=== PATIENT | female | born 1935 | race Caucasian/White ===

== ENCOUNTER 2021-01-05 13:19 | Emergency (ER) | payer MEDICARE ==
[~2021-01-05] VITALS: Ht 154.9 cm; Wt 46.3 kg
[2021-01-05] MEDS ORDERED: IV NORMAL SALINE 1000ML BAG 1,000 ML IV ONE (13:45)
--- NOTE | 2021-01-05 13:52 | RAD ---
EXAM: Head CT without contrast. HISTORY: Altered mental status. TECHNIQUE: Computed tomographic images of the head were obtained without contrast. *One or more of the following individualized dose reduction techniques were utilized for this examina tion: 1. Automated exposure control. 2. Adjustment of the mA and/or kV according to patient size. 3. Use of iterative reconstruction technique. COMPARISON: None. FINDINGS: There is no acute or subacute extra-axial or intraparenchymal hemorrhage. There is no mass effect or midline shift. There is no hydrocephalus. There are areas of decreased attenuation within the cerebral white matter, nonspecific and likely rel ated to chronic small vessel disease. There is cerebral atrophy. No orbital lesion is seen. The visualized paranasal sinuses are clear. There is minimal left mastoid fluid. No calvarial lesion is seen. IMPRESSION: 1. No acute intracranial finding. Note is made that MRI is more sensitive for acute infarction. 2. Bilateral cerebral white matter changes, likely due to chronic small vessel disease in a patient o f this age. 3. Cerebral atrophy. Findings were discussed with Beverley in the ED at 1345 hours on 01/05/2021. FOR INTERNAL CODING PURPOSES RESULT CODE: (C) Electronically signed by: Sarah Patterson MD (01/05/2021 1:49 PM) [id number]
--- NOTE | 2021-01-05 13:54 | RAD ---
EXAM: Chest, single view. HISTORY: Altered mental status. COMPARISON: None. FINDINGS: A frontal view of the chest is obtained. There is no infiltrate, pleural effusion or pneumo thorax. The heart is normal in size. IMPRESSION: No acute pulmonary finding. Electronically signed by: Sarah Patterson MD (01/05/2021 1:51 PM) [id number]
[2021-01-05 14:40] LABS: BASO % 1 % (0-3); EOS % 1 % (0-3); HEMATOCRIT 39.7 % (36.0-47.0); HEMOGLOBIN 13.4 g/dL (12.0-15.5); LYMPH % 11 % (24-48); MEAN CORPUSCULAR HEMOGLOBIN 31 pg (25-35); MEAN CORPUSCULAR HGB CONC 34 g/dL (31-37); MEAN CORPUSCULAR VOLUME 91 fL (79-100); MONO # 0.4 x10^3/uL (0.0-1.1); MONO % 5 % (0-9); NEUT # 7.6 x10^3/uL (1.8-7.7); NEUT % 83 % (31-73); PLATELET COUNT 243 x10^3/uL (140-400); RED BLOOD COUNT 4.36 x10^6/uL (3.50-5.40); RED CELL DISTRIBUTION WIDTH 13.6 % (11.5-14.5); WHITE BLOOD COUNT 9.2 x10^3/uL (4.0-11.0)
[2021-01-05 14:57] LABS: CALCIUM 8.8 mg/dL (8.5-10.1); CREATININE 1.2 mg/dL (0.6-1.0); GFR 42.9; POTASSIUM 4.2 mmol/L (3.5-5.1)
[2021-01-05 15:03] LABS: ALBUMIN/GLOBULIN RATIO 0.8 (1.0-1.7); TOTAL BILIRUBIN 0.3 mg/dL (0.2-1.0); TOTAL PROTEIN 6.7 g/dL (6.4-8.2)
--- NOTE | 2021-01-05 15:36 | PHYS DOC ---
Past Medical History Past Medical History: Diabetes-Type I Past Surgical History: Angioplasty, Hip Replacement General Adult EDM: Chief Complaint: ALTERED MENTAL STATUS HPI: HPI: Patient is a 85 year old female with history of diabetes type 1 who presents the ED today to be evaluated for presyncope event. Patient was apparently walking to the bathroom with her when she became weak, almost fell/passed out. This is a report from EMS. not present in the ED. EMS also reported patient had diarrhea for couple days. Patient arrives in the ED altered, she cannot tell us her date or follow directions well. Patient's came back later, he states he had given patient a warm shower on the way from the shower patient gently fell into his arms and she lowered her to the ground. She states she was unable to get patient off the ground. She said patient did not pass out. He states patient did not hit her head on the ground. He states patient has dementia and her current mentation is normal Review of Systems: Review of Systems: Constitutional: STEPHANIE due to mentation Eyes: STEPHANIE due to mentation Respiratory: STEPHANIE due to mentation Cardiovascular: STEPHANIE due to mentation GI: EMS reports diarrhea. Denies abdominal pain, nausea, vomiting, bloody stools or diarrhea. [] : STEPHANIE due to mentation Musculoskeletal: STEPHANIE due to mentation Neurologic: EMS reports presyncope. Altered mental status. Heart Score: C/O Chest Pain: N/A Risk Factors: Risk Factors: DM, Current or recent (<one month) smoker, HTN, HLP, family history of CAD, obesity. Risk Scores: Score 0 - 3: 2.5% MACE over next 6 weeks - Discharge Home Score 4 - 6: 20.3% MACE over next 6 weeks - Admit for Clinical Observation Score 7 - 10: 72.7% MACE over next 6 weeks - Early Invasive Strategies Current Medications: Current Medications Medications (Trade) Dose Ordered Sig/Julian Start Time Stop Time Status Last Admin Dose Admin Sodium Chloride 1,000 ml @ 1,000 mls/hr 1X ONCE 01/05/21 13:45 01/05/21 14:46 DC Allergies: Allergies: Allergies Coded Allergies Type Severity Reaction Last Updated Verified tramadol Allergy Severe 01/05/21 Yes Physical Exam: PE: Constitutional: Well developed, well nourished, no acute distress, non-toxic appearance. [] HENT: Normocephalic, atraumatic, bilateral external ears normal, oropharynx moist, no oral exudates, nose normal. [] Eyes: PERRLA, EOMI, conjunctiva normal, no discharge. [] Neck: Normal range of motion, no tenderness, supple, no stridor. [] Cardiovascular: Tachycardic Lungs & Thorax: Bilateral breath sounds clear to auscultation [] Abdomen: Bowel sounds normal, soft, no tenderness, no masses, no pulsatile masses. [] Skin: Dry skin with no erythema, no rashes Back: No tenderness, no CVA tenderness. [] Extremities: No tenderness, no cyanosis, no clubbing, ROM intact, no edema. [] Neurologic: Alert and oriented X 1, normal motor function, normal sensory function, no focal deficits noted. [] Psychologic: Affect normal, judgement normal, mood normal. [] Current Patient Data: Labs: Laboratory Tests Test 01/05/21 13:39 01/05/21 14:38 Glucose (Fingerstick) 192 mg/dL (70-99) H White Blood Count 9.2 x10^3/uL (4.0-11.0) Red Blood Count 4.36 x10^6/uL (3.50-5.40) Hemoglobin 13.4 g/dL (12.0-15.5) Hematocrit 39.7 % (36.0-47.0) Mean Corpuscular Volume 91 fL (79-100) Mean Corpuscular Hemoglobin 31 pg (25-35) Mean Corpuscular Hemoglobin Concent 34 g/dL (31-37) Red Cell Distribution Width 13.6 % (11.5-14.5) Platelet Count 243 x10^3/uL (140-400) Neutrophils (%) (Auto) 83 % (31-73) H Lymphocytes (%) (Auto) 11 % (24-48) L Monocytes (%) (Auto) 5 % (0-9) Eosinophils (%) (Auto) 1 % (0-3) Basophils (%) (Auto) 1 % (0-3) Neutrophils # (Auto) 7.6 x10^3/uL (1.8-7.7) Lymphocytes # (Auto) 1.0 x10^3/uL (1.0-4.8) Monocytes # (Auto) 0.4 x10^3/uL (0.0-1.1) Eosinophils # (Auto) 0.0 x10^3/uL (0.0-0.7) Basophils # (Auto) 0.0 x10^3/uL (0.0-0.2) Sodium Level 138 mmol/L (136-145) Potassium Level 4.2 mmol/L (3.5-5.1) Chloride Level 104 mmol/L (98-107) Carbon Dioxide Level 27 mmol/L (21-32) Anion Gap 7 (6-14) Blood Urea Nitrogen 22 mg/dL (7-20) H Creatinine 1.2 mg/dL (0.6-1.0) H Estimated GFR (Cockcroft-Gault) 42.9 BUN/Creatinine Ratio 18 (6-20) Glucose Level 235 mg/dL (70-99) H Calcium Level 8.8 mg/dL (8.5-10.1) Magnesium Level 2.0 mg/dL (1.8-2.4) Total Bilirubin 0.3 mg/dL (0.2-1.0) Aspartate Amino Transferase (AST) 17 U/L (15-37) Alanine Aminotransferase (ALT) 15 U/L (14-59) Alkaline Phosphatase 98 U/L (46-116) Troponin I Quantitative < 0.017 ng/mL (0.000-0.055) QA-Era-C-Type Natriuretic Peptide 1037 pg/mL (0-449) H Total Protein 6.7 g/dL (6.4-8.2) Albumin 3.0 g/dL (3.4-5.0) L Albumin/Globulin Ratio 0.8 (1.0-1.7) L Thyroid Stimulating Hormone (TSH) 1.445 uIU/mL (0.358-3.74) Laboratory Tests 01/05/21 14:38 Laboratory Tests 01/05/21 14:38 Vital Signs: Vital Signs Date Time Temp Pulse Resp B/P (MAP) Pulse Ox O2 Delivery O2 Flow Rate FiO2 01/05/21 13:19 98.3 108 24 210/83 (125) 99 Room Air 98.3 EKG: EK interpreted by Dr Carroll sinus tachycardia HR101 no STEMI [] Radiology/Procedures: Radiology/Procedures: []PROCEDURE: CT CODE STROKE HEAD WO EXAM: Head CT without contrast. HISTORY: Altered mental status. TECHNIQUE: Computed tomographic images of the head were obtained without contrast. *One or more of the following individualized dose reduction techniques were utilized for this examination: 1. Automated exposure control. 2. Adjustment of the mA and/or kV according to patient size. 3. Use of iterative reconstruction technique. COMPARISON: None. FINDINGS: There is no acute or subacute extra-axial or intraparenchymal hemorrhage. There is no mass effect or midline shift. There is no hydrocephalus. There are areas of decreased attenuation within the cerebral white matter, nons pecific and likely related to chronic small vessel disease. There is cerebral atrophy. No orbital lesion is seen. The visualized paranasal sinuses are clear. There is minimal left mastoid fluid. No calvarial lesion is seen. IMPRESSION: 1. No acute intracranial finding. Note is made that MRI is more sensitive for acute infarction. 2. Bilateral cerebral white matter changes, likely due to chronic small vessel disease in a patient of this age. 3. Cerebral atrophy. Findings were discussed with Beverley in the ED at 1345 hours on 01/05/2021. FOR INTERNAL CODING PURPOSES RESULT CODE: (C) Electronically signed by: Sarah Patterson MD (01/05/2021 1:49 PM) [id number] DICTATED and SIGNED BY: SARAH PATTERSON MD DATE: 01/05/21 [id number] PROCEDURE: PORTABLE CHEST 1V EXAM: Chest, single view. HISTORY: Altered mental status. COMPARISON: None. FINDINGS: A frontal view of the chest is obtained. There is no infiltrate, pleural effusion or pneumothorax. The heart is normal in size. IMPRESSION: No acute pulmonary finding. Electronically signed by: Sarah Patterson MD (01/05/2021 1:51 PM) [id number] DICTATED and SIGNED BY: SARAH PTATERSON MD DATE: 01/05/21 [id number] 0 Course & Med Decision Making: Course & Med Decision Making Pertinent Labs and Imaging studies reviewed. (See chart for details) This is a 85-year-old female patient presented to the ED today to be evaluated for a presyncopal event. Patient arrives in the ED altered. She is not following directions.. Code stroke was called on this patient on arrival to the ED because her symptoms are concerning for stroke. Fortunately we do not know when received exactly began considering is not in the ED to give us for history CT of the head was negative, labs are negative for any acute findings. UA positive for UTI. Given IV fluids. Given Rocephin. came back later and stated patient's current mentation is normal. He states he was walking patient from the shower to one of the rooms and she gently fell into his arms he had to lower her to the ground and was unable to get her up. Discharged to home on cephalexin. Dragon Disclaimer: Dragon Disclaimer: This electronic medical record was generated, in whole or in part, using a voice recognition dictation system. Departure Departure Impression: Primary Impression: Urinary tract infection Qualified Codes: N39.0 - Urinary tract infection, site not specified Additional Impression: Dehydration Disposition: HOME / SELF CARE / HOMELESS Condition: STABLE Patient Instructions: Dehydration, Adult, [id number], Urinary Tract Infection Additional Instructions: Gladys has urinary tract infection and was dehydrated. Please push fluids on her. We sent antibiotics to her pharmacy for urinary tract infection. She needs to complete them. Bring her back to the emergency room at any point symptoms worsen otherwise follow-up with her primary care doctor next week Scripts Cephalexin (CEPHALEXIN) 500 Mg Tablet 1 TAB PO BID, #14 TAB Prov: BEVERLEY SHERWOOD TRAIN ENGINEER 01/05/21 Cephalexin (CEPHALEXIN) 500 Mg Tablet 1 TAB PO BID, #14 TAB Prov: BEVERLEY SHERWOOD TRAIN ENGINEER 01/05/21 BEVERLEY SHERWOOD APRN Jan 05, 2021 15:36
[2021-01-05 16:00] LABS: BILIRUBIN,URINE NEGATIVE (NEG); CLARITY,URINE CLEAR; COLOR,URINE YELLOW; NITRITE,URINE POSITIVE (NEG); PROTEIN,URINE NEGATIVE (NEG-TRACE); UROBILINOGEN,URINE 0.2 mg/dL (0.2 mg/dL)
[2021-01-05 16:05] LABS: BACTERIA,URINE MANY /HPF (0-FEW)
[2021-01-05 16:07] LABS: BARBITURATES NEG (NEG); BENZODIAZEPINES NEG (NEG); CANNABINOIDS NEG (NEG); COCAINE NEG (NEG); METHADONE NEG (NEG); OPIATES NEG (NEG); PHENCYCLIDINE NEG (NEG)
[2021-01-05 16:08] LABS: AMPHETAMINE/METHAMPHETAMINE NEG (NEG); RBC,URINE RARE /HPF (0-2)
[2021-01-05] MEDS ORDERED: cefTRIAXone IV Push 1 GM VIAL. IVP ONE (16:45)
[2021-01-05 17:18] LABS: PROTHROMBIN TIME PATIENT 13.5 SEC (11.7-14.0)
--- NOTE | 2021-01-05 17:20 | EKG ---
[facility] [address] [place] [address] Test Date: 2021-01-05 Test Time: 13:32:47 Pat Name: ARLETTE CHOI Department: Room: Gender: F Hydropress Operator: : [id number] Requested By: RAMONA SHERWOOD Order Number: [id number] Reading MD: Measurements Intervals [place] Rate: 101 P: 29 NM: 178 QRS: 58 QRSD: 82 T: 64 QT: 350 QTc: 455 Interpretive Statements SINUS TACHYCARDIA ST & T ABNORMALITY, CONSIDER INFERIOR ISCHEMIA OR LEFT VENTRICULAR STRAIN ABNORMAL ECG RI6.02 No previous ECG available for comparison
[2021-01-05] MEDS ORDERED: CEPH500T PO (18:29)
[2021-01-05 18:30] VITALS: BP 148/70
== END 2021-01-05 18:50 | disposition home or self-care (01) ==
LOC: EDBD 13:19 → ER 13:19
DX: N39.0 Urinary tract infection, site not specified (principal); E86.0 Dehydration; R19.7 Diarrhea, unspecified; R53.1 Weakness
CPT/HCPCS: 36415; 70450; 71045; 80053; 80307; 81001; 82962; 83735; 83880; 84443; 84484; 85025; 85610; 85730; 87086; 93005; 96360; 96361; 99285; J7030; P9612